=== PATIENT | female | born 1990 | race Caucasian/White ===

== ENCOUNTER 2021-03-11 08:12 | Outpatient (REF) | payer BC, SELFPAY ==
--- NOTE | ~2021-03-11 | XR_ITS ---
EXAMINATION: XR LUMBOSACRAL SPINE CLINICAL INFORMATION: Low back pain COMPARISON: None TECHNIQUE: Three views of the lumbosacral spine. FINDINGS: There is normal lumbar lordosis. The vertebral heights, alignment and disc heights are normal. No acute fracture, dislocation or lytic process seen. The SI joints are symmetrical with partial lumbarization of S1 vertebra noted. The soft tissues are unremarkable. XR/XR lumbar spine 2-3V IMPRESSION: Unremarkable lumbar spine exam.
[2021-03-11 08:41] LABS: MANUAL DIFF FLAG NO
[2021-03-11 08:47] LABS: Basophils Percent Auto 0.6 % (0-2); Eosinophils Absolute Auto 0.2 X10*3/uL (0.0-0.4); Eosinophils Percent Auto 2.1 % (0-4); Hematocrit 40.3 % (37-47); Hemoglobin 13.2 g/dl (12.0-16.0); Imm Gran Abs Auto 0.02 X10*3/uL (0.00-0.03); Imm Gran Pct Auto 0.3 % (0.0-0.4); Lymphocytes Absolute Auto 2.2 X10*3/uL (1.2-4.9); Lymphocytes Percent Auto 30.8 % (20-40); Mean Corpuscular HGB Conc 32.8 g/dl (31.0-35.0); Mean Corpuscular Hemoglobin 26.7 pg (27.0-33.0); Mean Corpuscular Volume 81.4 fL (80-98); Mean Platelet Volume 10.2 fL (9.4-12.3); Monocytes Absolute Auto 0.5 X10*3/uL (0.1-1.2); Monocytes Percent Auto 7.3 % (2-11); Neutrophils Absolute Auto 4.3 X10*3/uL (2.0-8.3); Neutrophils Percent Auto 58.9 % (45-73); Platelet Count 361 X10*3/uL (160-400); Red Blood Count 4.95 X10*6/uL (4.20-5.50); Red Cell Distribution Width 13.2 % (11.0-16.0); White Blood Count 7.3 X10*3/uL (4.8-10.8)
[2021-03-11 09:19] LABS: Alanine Aminotransferase 23 U/L (0-31); Albumin Level 4.1 g/dL (3.5-5.0); Alkaline Phosphatase 60 U/L (39-117); Anion Gap 12 (12-20); Aspartate Amino Transferase 19 U/L (5-31); Bilirubin Total 0.4 mg/dL (0.0-1.0); Blood Urea Nitrogen 10 mg/dL (9-16); Calcium 9.1 mg/dL (8.4-10.2); Carbon Dioxide 25 mmol/L (22-29); Chloride 106 mmol/L (96-108); Cholesterol 208 mg/dL; Estimated Glomerular Filt Rate > 60; Glucose Random 109 mg/dL (60-115); HDL Cholesterol 43 mg/dL; LDL Cholesterol Calculated 135 mg/dl; Potassium 4.6 mmol/L (3.3-5.1); Sodium 138 mmol/L (135-145); Total Protein 6.9 g/dL (6.5-8.0); Triglycerides 154 mg/dL
== END 2021-03-11 08:13 | disposition home or self-care (01) ==
LOC: HO.LAB 08:12
PROVIDERS: PCP Internal Medicine; Visit Provider Physician Assistant
DX: M54.5 Low back pain (principal)
CPT/HCPCS: 36415; 72100; 80053; 80061; 85025

== ENCOUNTER 2022-06-12 13:32 | Outpatient (REF) | payer BC, SELFPAY ==
--- NOTE | ~2022-06-12 | XR_ITS ---
EXAMINATION: XR ANKLE, LEFT CLINICAL INFORMATION: Pain COMPARISON: None TECHNIQUE: AP, lateral, and mortise views of the left ankle. FINDINGS: No fracture or dislocation. The ankle mortise is congruent. No ankle joint effusion. Mild soft tissue prominence throughout the ankle. Degenerative change noted at the midfoot with spurring at the navicular and cuneiforms. XR/XR ankle LT min 3V IMPRESSION: Mild soft tissue prominence. No osseous abnormality.
[2022-06-12 17:37] LABS: MANUAL DIFF FLAG NO
[2022-06-12 17:49] LABS: Alanine Aminotransferase 20 U/L (0-31); Albumin Level 4.1 g/dL (3.5-5.0); Alkaline Phosphatase 55 U/L (39-117); Anion Gap 15 (12-20); Aspartate Amino Transferase 20 U/L (5-31); Basophils Absolute Auto 0.1 X10*3/uL (0.0-0.2); Bilirubin Total 0.6 mg/dL (0.0-1.0); Blood Urea Nitrogen 10 mg/dL (9-16); Calcium 9.1 mg/dL (8.4-10.2); Carbon Dioxide 25 mmol/L (22-29); Chloride 104 mmol/L (96-108); Cholesterol 204 mg/dL; Eosinophils Absolute Auto 0.1 X10*3/uL (0.0-0.4); Eosinophils Percent Auto 1.6 % (0-4); Estimated Glomerular Filt Rate > 60; Glucose Random 94 mg/dL (60-115); HDL Cholesterol 44 mg/dL; Hematocrit 39.9 % (37.0-47.0); Hemoglobin 13.1 g/dl (12.0-16.0); Imm Gran Abs Auto 0.02 X10*3/uL (0.00-0.03); Imm Gran Pct Auto 0.3 % (0.0-0.4); LDL Cholesterol Calculated 127 mg/dl; Lymphocytes Absolute Auto 1.9 X10*3/uL (1.2-4.9); Lymphocytes Percent Auto 27.2 % (20-40); Mean Corpuscular HGB Conc 32.8 g/dl (31.0-35.0); Mean Corpuscular Hemoglobin 26.8 pg (27.0-33.0); Mean Corpuscular Volume 81.6 fL (80.0-98.0); Monocytes Absolute Auto 0.4 X10*3/uL (0.1-1.2); Monocytes Percent Auto 5.2 % (2-11); Neutrophils Absolute Auto 4.6 x10*3/uL (2.0-8.3); Neutrophils Percent Auto 64.7 % (45-73); Platelet Count 372 X10*3/uL (160-400); Potassium 4.6 mmol/L (3.3-5.1); Red Blood Count 4.89 X10*6/uL (4.20-5.50); Red Cell Distribution Width 13.5 % (11.0-16.0); Sodium 139 mmol/L (135-145); Total Protein 6.9 g/dL (6.5-8.0); Triglycerides 168 mg/dL; White Blood Count 7.1 X10*3/uL (4.8-10.8)
[2022-06-12 18:09] LABS: Free T4 (Free Thyroxine) 0.99 ng/dL (0.71-1.85); Thyroid Stimulating Hormone 0.68 uIU/mL (0.32-4.0); Vitamin D 25-OH Total 22.5 ng/mL (>30)
== END 2022-06-12 13:33 | disposition home or self-care (01) ==
LOC: HO.MANLDS 13:32
PROVIDERS: PCP Internal Medicine; Visit Provider Physician Assistant
DX: Z00.00 Encounter for general adult medical examination without abnormal findings (principal); M25.572 Pain in left ankle and joints of left foot
CPT/HCPCS: 36415; 73610; 80053; 80061; 82306; 84439; 84443; 85025

== ENCOUNTER 2023-04-24 14:26 | Outpatient (REF) | payer OTHER, SELFPAY ==
[2023-04-27 04:15] LABS: Lyme Blot >10.00 index
[2023-05-03 13:03] LABS: Lyme Abs Screen POSITIVE
[2023-05-03 13:04] LABS: 18 KD (IgG) Band REACTIVE; 23 KD (IgG) Band REACTIVE; 23 KD (IgM) Band REACTIVE; 28 KD (IgG) Band NON-REACTIVE; 30 KD (IgG) Band REACTIVE; 39 KD (IgM) Band NON-REACTIVE; 39KD (IgG) Band REACTIVE; 41 KD (IgM) Band REACTIVE; 41KD (IgG) Band REACTIVE; 45 KD (IgG) Band REACTIVE; 58 KD (IgG) Band REACTIVE; 66 KD (IgG) Band REACTIVE; 93 KD (IgG) Band NON-REACTIVE; Lyme IgG Blot Interp POSITIVE (NEGATIVE); Lyme IgM Blot Interp POSITIVE (NEGATIVE)
== END 2023-04-24 14:27 | disposition home or self-care (01) ==
LOC: HO.MANLDS 14:26
PROVIDERS: Visit Provider Physician Assistant
DX: L08.9 Local infection of the skin and subcutaneous tissue, unspecified (principal)
CPT/HCPCS: 86617; 86618; 86666

== ENCOUNTER 2023-06-10 12:01 | Outpatient (REF) | payer OTHER, SELFPAY ==
--- NOTE | ~2023-06-10 | XR_ITS ---
EXAMINATION: XR ANKLE, LEFT CLINICAL INFORMATION: Pain COMPARISON: Previous x-ray May 2022 TECHNIQUE: AP, lateral, and mortise views of the left ankle. FINDINGS: Bone alignment is normal. No fracture or dislocation. The ankle mortise is normal. There degenerative changes of the midfoot. Soft tissues are unremarkable. XR/XR ankle LT min 3V IMPRESSION: Normal ankle. Degenerative changes of the midfoot.
== END 2023-06-10 12:02 | disposition home or self-care (01) ==
LOC: HO.XRAY 12:01
PROVIDERS: PCP Internal Medicine; Visit Provider Physician Assistant
DX: M25.572 Pain in left ankle and joints of left foot (principal)
CPT/HCPCS: 73610

== ENCOUNTER 2023-07-10 15:40 | Outpatient (REF) | payer OTHER, SELFPAY | END 2023-07-10 15:41 | disposition home or self-care (01) | LOC: HO.MAMMO 15:40 | PROVIDERS: PCP Physician Assistant; Visit Provider Physician Assistant | DX: Z12.31 Encounter for screening mammogram for malignant neoplasm of breast (principal) | CPT/HCPCS: 77063; 77067 ==

== ENCOUNTER → 2023-07-10 15:45 | Outpatient (BNV) | payer OTHER, SELFPAY | PROVIDERS: PCP Physician Assistant; Visit Provider Radiology Diagnostic Radiology | DX: Z12.31 Encounter for screening mammogram for malignant neoplasm of breast (principal) | CPT/HCPCS: 77063; 77067 ==

== ENCOUNTER 2024-07-20 13:40 | Outpatient (REF) | payer OTHER, SELFPAY ==
--- NOTE | ~2024-07-20 | XR_ITS ---
EXAMINATION: XR HAND, RIGHT CLINICAL INFORMATION: Pain in right thumb and hand injury. COMPARISON: None available. TECHNIQUE: PA, lateral, and oblique views of the right hand. FINDINGS: Radiopaque marker placed by technologist to indicate the area of concern as indicated by the patient along the proximal phalange of the first digit. Mild degenerative changes in the first carpometacarpal joint with joint space narrowing and hypertrophic change. Ulnar minus variance. Mild degenerative changes in the first metatarsophalangeal joint. Mild degenerative changes in the DIP joints. XR/XR hand RT min 3V IMPRESSION: 1. Mild degenerative changes first carpometacarpal joint. 2. Mild degenerative changes first metatarsophalangeal joint. 3. Mild degenerative changes in the DIP joints. Electronically signed by: Cindy Marlow MD 07/29/2024 10:52 AM EDT
== END 2024-07-20 13:41 | disposition home or self-care (01) ==
LOC: HO.XRAY 13:40
PROVIDERS: PCP Internal Medicine; Visit Provider Physician Assistant
DX: M79.644 Pain in right finger(s) (principal)
CPT/HCPCS: 73130

== ENCOUNTER 2025-07-31 09:10 | Outpatient (REF) | payer OTHER, SELFPAY ==
--- OUTSIDE RECORDS SUMMARY | 2025-07-31 09:14 | XMS_ITS | Clinical Summary ---
Author Organization [facility] Address [address] [place] [address] Care Team Providers Care Bobbin Trucker Name Role Phone Unavailable Primary Care Provider Unavailabl e Social History Tobacco Use Types Packs/Day Years Used Date Smoking Tobacco: Never Assessed Comments Unknown Sex and Gender Information Value Date Recorded Sex Assigned at Not on file Legal Sex Female 2:21 AM EST Gender Identity Not on file Sexual Orientation Not on file Plan of Treatment Not on file
--- OUTSIDE RECORDS SUMMARY | 2025-07-31 09:14 | XMS_ITS | Clinical Summary ---
Author Organization [facility] Address [address] [place] [phone] Phone Care Team Providers Care Director Product Management Name Role Phone Fantasma Paredes Primary Care Provider [phone] Allergies No known active allergies Medications cetirizine HCl (ZYRTEC ORAL) Active aspirin-acetami nophen-caffeine (EXCEDRIN MIGRAINE) 250-250-65 mg per tablet Excedrin Migraine Take two tables one time prn Active fluticasone propionate (FLONASE) 50 mcg/actuation nasal spray Flonase Active ALPRAZolam (XANAX) 0.5 MG tablet alprazolam 0.5 mg tablet TAKE 1 TABLET BY MOUTH THREE TIMES DAILY NEEDED Active peg-electrolyte soln (NULYTELY) 420 gram SolR peg-electrolyte solution 420 gram oral solution MIX AND DRINK DIRECTED Active albuterol 90 mcg/actuation inhaler Inhale 2 puffs into the lungs every 4 (four) hours as needed for wheezing. 6.7 g 2 Active Active Problems Problem Noted Date Diagnosed Date Seasonal allergies 02/07/2018 Social History Tobacco Use Types Packs/Day Years Used Date Smoking Tobacco: Never Smokeless Tobacco: Never Tobacco Cessation:Counseling Given: Not Answered Alcohol Use Standard Drinks/Week Comments Yes 0 (1 standard drink = 0.6 oz pur e alcohol) occasionally Education Answer Date Recorded Are you interested in more education? Not on susana e 02/15/2023 Are you concerned about learning? Not on file 02/15/2023 No 02/15/2023 No 02/15/2023 Digital Access Answer Date Recorded No 03/16/2023 No 03/16/2023 No 03/16/2023 Reliable internet access at home? Not on file 03/16/2023 Device with a working camera? Not on file Comments Unknown Sex and Gender Information Value Date Recorded Sex Assigned at Not on file Legal Sex Female 10:26 PM EDT Gender Identity Not on file Sexual Orientation Not on file Last Filed Vital Signs Vital Sign Reading Time Taken Comments Blood Pressure 153/101 10/03/2022 11:37 AM EST Pulse 86 10/03/2022 11:37 AM EST Temperature 36.9 C (98.4 F) 10/03/2022 11:37 AM EST Respiratory Rate 18 10/03/2022 11:37 AM EST Oxygen Saturation 97% 10/03/2022 11:37 AM EST Inhaled Oxygen Concentration - - Weight 158.8 kg (350 lb) 10/03/2022 11:37 AM EST per pt Height 177.8 cm (5' 10 ) 02/07/2018 2:22 PM EDT Body Mass Index 50.22 02/07/2018 2:22 PM EDT Plan of Treatment Health Maintenance Due Date Last Done Comments Adult Td,Tdap Booster 1989 DEPRESSION SCREENING 2001 HEPATITIS C SCREENING 2007 HIV ONE-TIME SCREENING (18-65 YEARS) 2007 PAP SMEAR 2010 SCREENING FOR DIABETES 02/12/2024 02/07/2018 INFLUENZA VACCINE (#1) 2025 2, 08/07/2021, 07/14/2019, Additional history exists COVID-19 VACCINE (2024- season) 2025 07/15/2022, 08/30/2021, 11/29/2020, Additional history exists SMOKING STATUS SCREENING (Once After 26 Yrs) Completed 10/03/2022 HEPATITIS A VACCINES Aged Out No long er eligible based on patient's age to complete this topic HIB VACCINES Aged Out No longer eligi ble based on patient's age to complete this topic MENINGOCOCCAL VACCINES (ACWY) Aged Out No longer eligible based on patient's age to complete this topic MENINGOCOCCAL VACCINES (B) Aged Out N o longer eligible based on patient's age to complete this topic PNEUMOCOCCAL VACCINES (0-49 years) Aged Out No longer eligible based on patient's age to complete this topic Medical Devices Not on file [place] [address] [place] [address] [place] [address] [place] [address] [place] [address] [place] [address] [place] [address] [place] [address] Care Teams Director Product Management Relationship Specialty Start Date End Date Fantasma Paredes DO [email or web address] PCP - General Internal Medicine 02/07/18 Additional Source Comments The information contained in this document represents components of the legal health record. It is not the complete legal health record.[facility]
--- OUTSIDE RECORDS SUMMARY | 2025-07-31 09:14 | XMS_ITS | Clinical Summary ---
Author Organization [facility] Address [address] [place] [id number] Care Team Providers Care Qa Reviewer Name Role Phone Unavailable Primary Care Provider Unavailabl e Social History Tobacco Use Types Packs/Day Years Used Date Smoking Tobacco: Never Assessed Comments Unknown Sex and Gender Information Value Date Recorded Sex Assigned at Not on file Legal Sex Female 7:43 AM EST Gender Identity Not on file Sexual Orientation Not on file Plan of Treatment Health Maintenance Due Date Last Done Comments HIV screening 2002 Hepatitis C screening 2007 Tetanus adult (Td q 10,TDAP once) 2009 Influenza vaccine 05/21/2025 Covid-19 vaccine series (2023- season) 2025 RSV Immunization (1 - 1-dose 75+ series) 02/12/2064 Meningococcal B Vaccine Aged Out No l onger eligible based on patient's age to complete this topic Meningococcal Vaccine Aged Out No tina shanique eligible based on patient's age to complete this topic Pneumococcal Vaccine (2 - 49 years) Aged Out No longer eligible based on patient's age to complete this topic
--- OUTSIDE RECORDS SUMMARY | 2025-07-31 09:14 | XMS_ITS | Encounter Summary ---
Author Organization [facility] Address [address] [place] [phone] Phone Care Team Providers Care Lead Electrical Controls Engineer Name Role Phone Fantasma Paredes DO Primary Care Provider [phone] Encounter Details Date Type Department Care Team (Latest Contact Info) Description 08/04/2024 Transcribe Orders Virtual Department [address] [place] [phone] Kierra Smith PA [address] [facility] [place] [place] [address] Pain in right finger(s) (Primary Dx) Social History Tobacco Use Types Packs/Day Years Used Date Smoking Tobacco: Never Smokeless Tobacco: Never Alcohol Use Standard Drinks/Week Comments Yes 0 [...] on file Sexual Orientation Not on file documented as of this encounter Plan of Treatment Not on file documented as of this encounter Visit Diagnoses Diagnosis Pain in right finger(s)- Primary documented in this encounter Care Teams Lead Electrical Controls Engineer Relationship Specialty Start Date End Date Fantasma Paredes DO [email or web address] PCP - General Internal Medicine 02/07/18 documented as of this encounter Additional Source Comments The information contained in this document represents components of the legal health record. It is not the complete legal health record.[facility]
[2025-07-31 09:48] LABS: MANUAL DIFF FLAG NO
[2025-07-31 10:18] LABS: Hematocrit 39.9 % (37.0-47.0); Hemoglobin 13.0 g/dl (12.0-16.0); Imm Gran Abs Auto 0.03 X10*3/uL (0.00-0.03); Imm Gran Pct Auto 0.4 % (0.0-0.4); Lymphocytes Absolute Auto 1.3 X10*3/uL (1.2-4.9); Mean Corpuscular HGB Conc 32.6 g/dl (31.0-35.0); Mean Corpuscular Hemoglobin 27.1 pg (27.0-33.0); Mean Corpuscular Volume 83.1 fL (80.0-98.0); NRBC Abs Auto 0.000 X10*3/uL (0.0-0.012); NRBC Pct Auto 0.0 /100WBC (0.0-0.2); Platelet Count 330 X10*3/uL (160-400); Red Blood Count 4.80 X10*6/uL (4.20-5.50); White Blood Count 7.4 X10*3/uL (4.8-10.8)
[2025-07-31 12:03] LABS: Alanine Aminotransferase 27 U/L (0-31); Albumin Level 4.2 g/dL (3.5-5.0); Alkaline Phosphatase 57 U/L (39-117); Anion Gap 11 (12-20); Aspartate Amino Transferase 24 U/L (5-31); Blood Urea Nitrogen 10 mg/dL (9-16); Calcium 8.7 mg/dL (8.4-10.2); Carbon Dioxide 26 mmol/L (22-29); Chloride 104 mmol/L (96-108); Cholesterol 214 mg/dL (<200); Estimated Glomerular Filt Rate > 60; HDL Cholesterol 42 mg/dL (>40); Potassium 4.4 mmol/L (3.3-5.1); Sodium 137 mmol/L (135-145); Total Protein 6.8 g/dL (6.5-8.0); Triglycerides 213 mg/dL (<150)
[2025-07-31 12:04] LABS: Folate 13.3 ng/mL (> or = 4.0); Vitamin B12 264 pg/mL (200-900)
[2025-07-31 12:21] LABS: Free T4 (Free Thyroxine) 0.90 ng/dL (0.71-1.85); Thyroid Stimulating Hormone 0.88 uIU/mL (0.32-4.0)
== END 2025-07-31 09:11 | disposition home or self-care (01) ==
LOC: HO.LAB 09:10
PROVIDERS: PCP Internal Medicine; Visit Provider Physician Assistant
DX: Z00.00 Encounter for general adult medical examination without abnormal findings (principal); Z13.6 Encounter for screening for cardiovascular disorders; Z13.1 Encounter for screening for diabetes mellitus; Z13.29 Encounter for screening for other suspected endocrine disorder
CPT/HCPCS: 36415; 80053; 80061; 82306; 82607; 82746; 83036; 84439; 84443; 85025

== ENCOUNTER 2025-09-07 16:11 | Outpatient (REF) | payer OTHER, SELFPAY ==
--- NOTE | ~2025-09-07 | XR_ITS ---
EXAMINATION: XR ANKLE, LEFT CLINICAL INFORMATION: ANKLE PAIN COMPARISON: None available. TECHNIQUE: AP, lateral, and mortise views of the left ankle. FINDINGS: No fracture. Alignment is anatomic. No erosions. Joint spaces are maintained. Soft tissues are normal. XR/XR ankle LT min 3V IMPRESSION: Unremarkable left ankle. Electronically signed by: Anil Corea MD 09/07/2025 04:45 PM EST
--- OUTSIDE RECORDS SUMMARY | 2025-09-08 13:23 | XMS_ITS | Data Portability ---
Author Organization [facility], Telehealth Patient Home Address [address] [place] [address] Assessment Encounter Date Assessment Date Assessment LastModified by Organization Details LastModified Time 07/21/2024 07/21/2024 need XR orders [email or web address] Not available 07/21/2024 15:53:41 Plan of Treatment Reminders Order Date Submit Date Provider Last Modified By Organization Details Last Modified Time Details Appointments ANNUAL EXAM 2025 03:30P AGNES AYALA Not available Not available Not available Lab CMP, serum or plasma 2024 025 [facility], [address] [place] [address], [id number], 07/27/2025 16:19:44 CBC w/ auto diff 2024 025 [facility], [address] [place] [address], [id number], 07/27/2025 16:19:44 lipid panel, blood 2024 025 [facility], [address] [place] [address], [address], 07/27/2025 16:19:44 vitamin D, 25-hydrox y, total, serum 2024 025 [facility], [address] [place] [address], [address], 07/27/2025 16:19:44 TSH + free T4, serum 2024 025 [facility], [address] [place] [address], [address], 07/27/2025 16:19:44 hemoglobi n A1c, QN, blood 2024 025 [facility], [address] [place] [address], [address], 07/27/2025 16:19:44 vitamin B12 + folate, serum or blood 2024 025 [facility], [address] [place] [address], [address], 08/03/2025 08:32:52 CMP, serum or plasma 2023 024 [facility], [address] [place] [address], [address], 07/21/2024 16:09:26 CBC w/ auto diff 2023 024 [facility], [address] [place] [address], [address], 07/21/2024 16:09:26 vitamin D, 25-hydrox y, total, serum 2023 024 [facility], [address] [place] [address], 37[address], 07/21/2024 16:09:26 lipid panel, blood 2023 024 [facility], [address] [place] [address], 58[address], 07/21/2024 16:09:26 hemoglobi n A1c, QN, blood 2023 024 [facility], [address] [place] [address], [address], 07/21/2024 16:09:26 TSH + free T4, serum 2023 024 [facility], [address] [place] [address], 9[address], 07/21/2024 16:09:26 CMP, serum or plasma 2021 022 [facility], [address] [place] [address], 78[address], 06/13/2022 11:55:41 CBC w/ auto diff 2021 [facility], [address] [place] [address], 07[address], 06/06/2022 12:25:22 lipid panel, blood 2021 [facility], [address] [place] [address], 287[address], 06/13/2022 11:55:41 vitamin D, 25-hydrox y, total, serum 2021 022 [facility], [address] [place] [address], [address], 06/06/2022 12:25:22 TSH + free T4, serum 2021 022 [facility], [address] [place] [address], [address], 06/13/2022 11:55:42 lipid panel, blood 2020 021 [facility], [address] [place] [address], [place], [address], 03/13/2021 11:47:02 CMP, serum or plasma [email or web address] [place] [address] Internal Medicine, [address] [place] [address], [facility] [place], [address], 02/28/2021 08:27:56 CBC w/ auto diff 2020 021 [facility], [address] [facility], [address], [place], [address], 03/13/2021 11:47:02 Referral orthopedi c surgeon referral 2024 025 [facility]opedic Surgeon, [address], [place], [address], 09/03/2025 08:10:15 gynecolog ist referral 2024 025 [email or web address] 10 [facility], [address] [place] [address], [address], 07/30/2025 08:30:32 ophthalmo logist referral 2021 022 [facility]rol [facility], [address] [place], [address], 06/11/2022 09:00:28 genetic counselor referral 2021 022 [email or web address] Miguel Scott MD, [address], [place], [address], 07/16/2022 15:17:19 gastroent erologist referral 2021 022 [email or web address] 10 Agustin Ruelas MD, [address] [facility] [address], [place], [address], 06/08/2022 16:03:47 Procedures None recorded. Surgeries None recorded. Imaging XR, ankle, 3 or more view 2022 023 [facility], [address], [place], [address], 06/11/2023 15:20:48 MAMMO, screening , digital, bilateral - fam hx with mom has breast cancer, needs 6 mos for previous imaging 2022 023 [email or web address] 10 [facility], [facility], [place], [address], 06/25/2023 12:05:06 XR, ankle, 3 or more view 2021 022 [facility] Central Scheduling, [address] [place] [address], [address], 06/15/2022 01:16:28 MAMMO, screening , digital, bilateral - mother and multiple aunts diagnosed with breast cancer, mother has the CHEK2 mutation 2021 022 [email or web address] [facility], [address], [place], [address], 07/06/2022 09:33:38 XR, lumbar spine, 2 view 2020 021 [facility] Central Scheduling, [address] [place] [address], [address], 02/28/2021 08:51:08 Medication Orders bupropion HCl XL 150 mg 24 hr tablet, extended release 2023 024 [id number], [address] [place], [address], 08/12/2024 11:56:08 Patient TargetsNo targets recorded. Patient InstructionsNo instructions recorded. Reason for Referral Product Promoter Sales Person Referral for Family history of cancer of colon significant family hx of colon cancer, with mother, uncle and aunt Referring Physician: Kierra Smith, Internal Medicine, Encounter Date: 06/06/2022 Genetic Counselor Referral f or Family history of breast cancer significant family hx of breast and colon cancer, mother has the CHEK2 mutation Referring Physician: Kierra Smith, Internal Medicine, Encounter Date: 06/06/2022 Oil Pumper Referral for Chronic uveitis needs referral, already has appt Referring Physician: Kierra Smith, Internal Medicine, Encounter Date: 06/06/2022 Orthopedic Surgeon Referral for Acute ankle pain left ankle and left knee pain Referring Physician: Kierra Smith, Internal Medicine, Encounter Date: 07/27/2025 Boiler Blower Referral for Sc reening for malignant neoplasm of cervix needs new DATA WAREHOUSE SPECIALIST Referring Physician: Kierra Smith, Internal Medicine, Encounter Date: 07/27/2025 Results Created Date Observation Date Name Description Value Unit Range Abnormal Flag Note LastModifiedBy Organization Detail LastModifiedTime 03/22/20 21 03/11/2021 XR, lumba r spine , 2 view No observ ation record ed. [facility] Central Scheduling [address] [place], [address], 03/24/2021 16:18:50 06/15/20 22 06/12/2022 XR, ankle , 3 or more view No observ ation record ed. [facility] (Medical Records) [address] [place], [address], 06/18/2022 11:19:56 07/11/20 22 07/11/2022 MAMMO , scree trena, digit al, bilat eral No observ ation record ed. [facility] [place] [address] [facility] [place], [address], 07/13/2022 08:47:06 07/20/20 22 07/20/2022 MAMMO , scree trena, digit al, bilat eral No observ ation record ed. [facility] [place] [address] [place], [address], 07/20/2022 16:49:06 06/11/20 23 06/10/2023 XR, ankle , 3 or more view No observ ation record ed. [facility] (Medical Records) [address] [place], [address], 06/11/2023 15:27:58 07/30/20 23 07/10/2023 MAMMO , scree trena, digit al, bilat eral No observ ation record ed. [facility] [address] [place], [address], 07/31/2023 08:39:50 07/29/20 24 07/20/2024 XR, hand, 3 or more view No observ ation [facility]. [facility] [address] [place], [address], 07/31/2024 14:58:25 09/07/20 25 09/07/2025 XR, ankle , 3 or more view No observ ation record ed. [email or web address] [facility] (Medical Records) [address] [place], [address], 09/08/2025 08:30:04 Result Notes None recorded. Problems Name Problem SNOMED Code Status Onset Date Resolution Date Notes Provider Name and Address Organization Details Recorded Time Lyme disease 04210638 Active 2017 Not Available [facility] 3 16:40:52 Fracture of bone 652472432 Active 2017 Toes - uncertain of specifics Not Available [facility] 3 16:40:52 Allergic rhinitis 05762839 Active 2017 Not Available [facility] 3 16:40:52 Anxiety 43785755 Active 2017 Not Available [facility] 3 16:40:52 Anemia 134888983 Active 2017 diet related- vegetaria n Not Available [facility] 3 16:40:52 Migraine 58986010 Active 2017 Not Available [facility] 3 16:40:52 Cataract 012056738 Active 2017 2/2 use for tx of uveitis s/p removal - age 14 Not Available [facility] 3 16:40:52 Uveitis 640536759 Active 2017 with JRA Not Available [facility] 3 16:40:52 Pain of left ankle joint 44005479075 930320 Active 2021 Not Available [facility] 3 16:40:52 Chronic uveitis 895571236 Active 2021 Not Available [facility] 3 16:40:52 Localize d swelling , mass and lump, lower limb Active 2021 Not Available [facility] 3 16:40:52 COVID-19 805190186 Active 2022 Not Available [facility] 3 16:40:52 Infected insect bite 601164533 Active 2022 Not Available [facility] 3 16:40:52 Pain in right thumb 79213109218 20971 Active 2023 AGNES LANDAVERDE [address] [place], [address], [facility] 4 10:24:48 Anxiety disorder 994321124 Active 2023 AGNES LANDAVERDE [address] [place], [address], [facility] 4 16:06:46 Acute ankle pain 72025165486 105 Active 2024 AGNES [address]DAVERDE [address] [place] [address], [address], [facility] 5 16:00:02 Problem Notes None recorded. Procedures Surgical History Date Name Laterality Status Provider Name and Address Organization Details Recorded Time 10/21/19 13 Date of Last Pap Smear completed January PHILIPPE Rodriguez [address] [place], [address], [facility] 03/03/2018 16:18:48 Cataract Surgery completed Georgina Hoff [facility] 02/17/2018 08:39:49 Imaging Results None recorded. Procedure Notes None recorded. Medical Equipment None Reported. Allergies No known drug allergies Medications Name Sig Start Date Stop Date Status Note LastModified by Organization Details LastModified Time azithromyci n 250 mg tablet TAKE 2 TABLETS BY MOUTH TODAY, THEN TAKE 1 TABLET DAILY FOR 4 DAYS 06/10 completed Not Available Not Available Not Available fluconazole 150 mg tablet Take 1 tablet every day by oral route for 3 days. 04/06 completed Not Available Not Available Not Available meloxicam 15 mg tablet TAKE 1 TABLET BY MOUTH WITH A MEAL FOR 30 DAYS active Not Available Not Available No t Available Zyrtec 10 mg tablet Take 1 tablet every day by oral route. active OTC Not Available Not Available No t Available peg-electro lyte solution 420 gram oral solution MIX AND DRINK DIRECTED 06/10 completed Not Available Not Available Not Available alprazolam 0.5 mg tablet TAKE 1 TABLET BY MOUTH THREE TIMES A DAY NEEDED active Not Available Not Available No t Available cephalexin 500 mg capsule TAKE 1 CAPSULE BY MOUTH EVERY 6 HOURS FOR 7 DAYS 06/10 completed Not Available Not Available Not Available methylpredn isolone 4 mg tablets in a dose pack TAKE 6 TABLETS ON DAY 1 DIRECTED ON PACKAGE AND DECREASE BY 1 TAB EACH DAY FOR A TOTAL OF 6 DAYS 06/10 completed Not Available Not Available Not Available albuterol sulfate HFA 90 mcg/actuati on aerosol inhaler INHALE 2 PUFFS BY MOUTH EVERY 4 HOURS NEEDED FOR WHEEZING 06/10 completed Not Available Not Available Not Available doxycycline hyclate 100 mg tablet TAKE 1 TABLET BY MOUTH TWICE A DAY 07/21 completed Not Available Not Available Not Available bupropion HCl XL 150 mg 24 hr tablet, extended release TAKE 1 TABLET BY MOUTH EVERY DAY active Not Available Not Available No t Available melatonin 06/06 completed Not Available Not Available Not Available Kava Kava 1 capsule once a day 04/06 completed Not Available Not Available Not Available Flonase active Not Available Not Avail able Not Available Excedrin Migraine Take two tables one time prn 06/10 completed Not Available Not Available Not Available Zyrtec 10 mg capsule Take 1 capsule every day by oral route. 06/06 completed Not Available Not Available Not Available [facility] with Large Mask USE WITH INHALER DIRECTED 06/10 completed Not Available Not Available Not Available Fluarix Quad 0420-3587 (PF) 60 mcg (15 mcg x 4)/0.5 mL IM syringe 02/17 completed Not Available Not Available Not Available Flucelvax Quad (PF) 60 mcg (15 mcg x 4)/0.5 mL IM syringe 02/21 completed Not Available Not Available Not Available Flucelvax Quad (PF) 60 mcg (15 mcg x 4)/0.5 mL IM syringe 02/21 completed Not Available Not Available Not Available Vitals Date Recorded Body height Body mass index (BMI) Body weight Oxygen saturation Oxygen saturation in Arterial blood by Pulse oximetry Heart rate Systolic And Diastolic Provider Name and Address Organization Details Last Updated DateTime 1 176.53 cm 54.4 kg/m2 645469. 55 g 98 % 98 % 103 /min 134/70 mm[Hg] Wilda Mendoza [facility] Internal [facility] 1 15:55:40 Date Recorded Body height Body mass index (BMI) Body weight Oxygen saturation Oxygen saturation in Arterial blood by Pulse oximetry Heart rate Systolic And Diastolic Provider Name and Address Organization Details Last Updated DateTime 2 176.53 cm 55.1 kg/m2 980490. 99 g 99 % 99 % 91 /min 140/72 mm[Hg] Vianca Yoon [facility] Internal Medicine 2 11:47:33 Date Recorded Body height Body mass index (BMI) Body weight Heart rate Oxygen saturation Oxygen saturation in Arterial blood by Pulse oximetry Systolic And Diastolic Provider Name and Address Organization Details Last Updated DateTime 3 176.53 cm 56.3 kg/m2 181880. 53 g 85 /min 100 % 100 % 132/86 mm[Hg] AGNES LANDAVERDE [address] [place], [address] [place] [address] Internal Medicine 3 10:43:16 Date Recorded Body height Body mass index (BMI) Body weight Heart rate Oxygen saturation Oxygen saturation in Arterial blood by Pulse oximetry Systolic And Diastolic Provider Name and Address Organization Details Last Updated DateTime 4 176.53 cm 59.2 kg/m2 601308. 38 g 91 /min 96 % 96 % 160/102 mm[Hg] Bailey Richard [facility] Internal Medicine 4 15:29:45 Date Recorded Body weight Body mass index (BMI) Body height Heart rate Oxygen saturation Oxygen saturation in Arterial blood by Pulse oximetry Systolic And Diastolic Provider Name and Address Organization Details Last Updated DateTime 5 987270. 87 g 60.5 kg/m2 175.26 cm 90 /min 98 % 98 % 160/90 mm[Hg] Rika Álvaro [facility] Internal Medicine 15:27:28 Social History Question Answer Notes LastModified by Organizat ion Details LastModified Time Tobacco Smoking Status Never Smoker Georgina Hoff rosie [facility] Internal Medicine 02/17/2018 16:05:57 What Was The Date Of Your Most Recent Tobacco Screening? 07/27/2025 [email or web address] Information not available 07/27/2025 How Much Tobacco Do You Smoke? No Information not available 02/21/2021 How Many Years Have You Smoked Tobacco? 0 Information not available 02/21/2021 Sex: Unknown Functional Status Question Answer Note LastModified by Organizat ion Details LastModified Time Do you or have you ever used smokeless tobacco? Never used smokeless tobacco Information not available 02/21/2021 Do you or have you ever used e-cigarettes or vape? Never used electronic cigarettes Information not available 02/21/2021 Mental Status None recorded. Family History Relationship Description Onset Age of this Age Resolved Age Notes LastModified by Organization Details LastModified Time Maternal Grandfather Parkinson's disease [email or web address] Not available 03/03 16:14:46 Maternal Grandmother Myocardial infarction 90 90 [email or web address] Not available 02/18 16:15:43 Maternal Grandmother Malignant melanoma of skin 90 [email or web address] Not available 03/03 16:16:38 Paternal Grandmother Myocardial infarction 86 86 [email or web address] Not available 02/18 16:15:43 Mother Parkinson's disease [email or web address] Not available 2022 11:03:41 Mother Malignant neoplasm of breast [email or web address] Not available 2022 11:04:49 Father Spinal stenosis of lumbosacral region [email or web address] Not available 2024 16:11:49 Medical History No medical history recorded. Gynecological History Statement/Question Response Abnormal Pap N Flow Moderate Date of LMP 04/25/2018 STIs/STDs N HPV Vaccine N Duration of Flow (days) 5 Age at Menarche 11 Current Control Method None Age at First Child Frequency of Cycle (Q days) 27 Sexually Active? Y Menses Monthly Y Date of Last Pap Smear 10/21/2012 Sexual Problems? N Desired Control Method None Obstetrics History GPAL:G 0 P 0 0 0 0 Immunizations Vaccine Type Date Status Note Provider Azam malik and Address Organization Details Recorded Time SARS-COV-2 (COVID-19) vaccine, UNSPECIFIED 08/16/2024 completed Bailey velez [facility] 08/18/2024 09:01:44 influenza, unspecified formulation 08/16/2024 completed Bailey velez [facility] 08/18/2024 09:01:52 SARS-COV-2 (COVID-19) vaccine, UNSPECIFIED 07/30/2025 completed Bailey velez [facility] 08/03/2025 10:14:41 influenza, unspecified formulation 07/30/2025 completed Bailey velez [facility] 08/03/2025 10:14:50 COVID-19, mRNA, LNP-S, PF, 100 mcg/0.5mL dose or 50 mcg/0.25mL dose 11/04/2020 completed Wilda velez [facility] 02/21/2021 15:56:21 COVID-19, mRNA, LNP-S, PF, 100 mcg/0.5mL dose or 50 mcg/0.25mL dose 11/29/2020 completed Wilda velez [facility] 02/21/2021 15:56:32 Past Encounters Encounter ID Performer Location Encounter Start Date Encounter Closed Date Diagnosis/Indication Diagnosis SNOMED-CT Code Diagnosis ICD10 Code Diagnosis IMO Codes Diagnosis Note [id number] Fantasma Paredes DO [facility] Internal Medicine [address] [facility],[place] [address] 02/17/2018 15:47:09 02/17/2018 16:42:16 Atypical chest pain 807099793 R07.89 determined likely to be muscular or anxiety, cardiac work up was neg per the pt - will need to request the full work up Generalize d anxiety disorder 14897321 F41.1 she takes a kava supplement which is supposed to help with anxiety Tachycardia 0137323 R00. 0 may be anxiety related cut out caffeine cardiovasc ular exercise daily stay well hydrated [id number] Fantasma Paredes [facility] Internal Medicine [address] [facility] [address] 03/03/2018 15:48:58 03/03/2018 16:46:42 Adult health examination 265208589 Z00.01 she will schedule pap with karlo doyle. she doesn't have any plans to have children, therefore would prefer not to see OB Active or passive immunization 098507531 Z23 Microscopic hematuria 19 2436532 R31.21 Obesity 962794635 E66.9 Anxiety 23101167 F41.9 using kava, with good control of sx - has not needed the xanax the chest pains she was feeling have gone as well as the back pain. Virilization 17714812 E2 5.9 [id number] Fantasma Paredes [facility] [address] [facility],[place] [address] 05/12/2018 13:53:06 05/12/2018 15:00:52 Generalized anxiety disorder 52875110 F41.1 she takes a kava supplement which is supposed to help with anxiety has used it twice with good effect overall feels less anxious knowing she has the medication Microscopic hematuria 19 9967561 R31.21 lmp - 04/29 was last day [id number] Fantasma Paredes [facility] [address] [facility],[place] [address] 05/14/2018 14:58:48 05/14/2018 15:50:16 Candidal vulvovaginitis 44534191 B37.3 OTC miconazole 7 day topical and suppositor y Epidermoid cyst of skin 722113042 L72.0 discuss hygiene, try antiperspe rent [id number] Fantasma Paredes [facility] [address] [facility] [address] 11/28/2018 16:05:12 11/28/2018 16:32:45 Anxiety 37600473 F41.9 using xanax pretty sparingly but with good relief Migraine 79933045 G43.90 9 usually takes excedrine if needed Allergic rhinitis 769232 04 J30.9 takes zyrtec and/or flonase depending on sx usually fall and spring sometimes takes flonase in the winter Candidiasis of vagina 72 143471 B37.3 sx keep coming back after treatment has had treatment otc or oral several times with only transient relief will trial diflucan 150 x 3 days, if sx return or don't resolved, need to see senior brand manager or ES for exam Skin lesion 30532463 L98 .9 [id number] Fantasma Paredes DO [facility] Internal Medicine [address] [facility], [place] [address] 04/06/2019 10:49:46 04/06/2019 11:59:21 Adult health examination 513565306 Z00.00 had pap with ES last year Active or passive immunization 196563859 Z23 Anxiety 07883956 F41.9 using xanax pretty sparingly maybe once per month - but with good relief Allergic rhinitis 204653 04 J30.9 takes zyrtec and/or flonase depending on sx usually fall and spring sometimes takes flonase in the winter Migraine 66531825 G43.90 9 usually takes excedrin if needed Anemia 079576277 D64.9 Essential hypertension 30553515 I10 Body mass index 30+ - obesity 238083555 Z68.43 Intermitte nt palpitations 407332556 R00.2 usually at rest, no cp or sob associated reassuranc e provided Microscopic hematuria 19 1496832 R31.21 lmp - 7/12 was last day had last year then resolved will monitor Vitamin D deficiency 347 32573 E55.9 [id number] Fantasma Paredes DO [facility] Internal Medicine [address] [facility], [place] [address] 02/21/2021 15:49:46 02/22/2021 08:10:52 Active or passive immunization 311653498 Z23 up-to-date Adult heal th examination 441998402 Z00.00 BP fine today Screening for cardiovascular system disease 770902617 Z13.6 needs BW done Low back pain 682291191 M54.5 will fu with XR [id number] AGNES LANDAVERDE [facility] [address] [facility], [place] [address] 06/06/2022 11:40:06 06/06/2022 13:04:50 Active or passive immunization 423700810 Z23 up-to-date Adult heal th examination 966713013 Z00.00 BP fine today Family his tory of cancer of colon 022237750 Z80.0 will fu with GI referral for colonoscop y Family his tory of breast cancer 773979943 Z80.3 will set up with genetic counselor referral and screening mammogram Pain of le ft ankle joint 0468905187 9425300 M25.572 will set up with XR ankle Chronic uveitis 37479243 2 H20.13 will send referral for patient [id number] Fantasma Paredes [facility] Internal Medicine [address] [place] [address] 06/10/2023 10:16:05 06/10/2023 11:51:36 Active or passive immunization 980601240 Z23 up-to-date Adult heal th examination 161723773 Z00.00 BP fine today Anxiety 03196189 F41.1 stable Pain of le ft ankle joint 3590596042 5267552 M25.572 will set up with XR ankle Screening mammography 24 614594 Z12.31 will set up with her f/u screening [id number] Fantasma Paredes [facility] [address] [place] [address] 07/21/2024 15:12:52 07/21/2024 16:18:35 Active or passive immunization 155030076 Z23 up-to-date Adult heal th examination 381496836 Z00.00 BP fine today Depression screening 171 635411 Z13.31 SCREENING NEGATIVE Anxiety disorder 6933535 06 F40.01 start for both anxiety and ADHD [id number] Fantasma Paredes [facility] [address] [place] [address] 07/27/2025 15:19:37 07/27/2025 16:23:24 General examination of patient [id number] Z00.00 [id number] BP fine today Acute ankle pain [id number] M25.572 [id number] will set up with XR ankle Screening for malignant neoplasm of cervix [id number] Z12.4 [id number] needs new DATA WAREHOUSE SPECIALIST Health Concerns Section Related Observation LastModified by Organization Detai ls LastModified Time None Recorded Concern Status LastModified by Organization Details LastModified Time None Recorded Advance Directives Directive None Recorded Payers Insurance Date Sequence Insurance Name Policy Number Policy Hernadez Covered Member ID Hernadez Member ID Guarantor Name 04/24/2023 1 [facility] [id number] January B Nicotera [id number] January Nicotera 07/24/2025 1 [facility] [id number] January Nicotera [id number] January Nicotera Notes Date Note Type Note Provider Name and Address Organization Details Recorded Time 1 text/html Annual WellnessReported by PatientSocial/Behaviora l HistoryFor diet and nutrition, patient reportshealthy diet,discussed vitamin and supplement use,discussed portion control,discussed maintaining calcium balance, anddiscussed diet improvement(the patient is eating anjana bar for lunch, leftovers for dinner). For fracture risk, patient reportsno history of fractures,no recent explained fracture,no sudden unexplained fractures, andno previous musculoskeletal injuries. For physical activity, patient reportsexercises on a regular basis,discussed weightbearing activities, anddiscussed exercise habits(walks two miles per day). For additional lifestyle factors, patient reportsno tobacco useanddrinks alcohol (mild-moderate) (two drinks per week)(uses marijuana, eats it).Mental Status:For depression risk, patient reportsnever feels sad, empty, or tearful,no loss of interest in activities,no significant changes in weight,no sleep disturbances or insomnia,no agitation,no loss of energy,no feelings of worthlessness or guilt,no thoughts of suicide,no history of depression, andno history of mood disorders(the patient reports she has more good days than bad days).Functional AbilityFor hearing, patient reportsno loss of hearing. For vision, patient reportsno vision problems(glasses and contacts). AGNES LANDAVERDE [address] [place], [address], [facility] 02/21/2021 16:15:42 2 text/html Annual WellnessReported by PatientSocial/Behaviora l HistoryFor diet and nutrition, patient reportshealthy diet,discussed vitamin and supplement use,discussed portion control,discussed maintaining calcium balance, anddiscussed diet improvement. For fracture risk, patient reportsno history of fractures,no recent explained fracture,no sudden unexplained fractures, andno previous musculoskeletal injuries. For physical activity, patient reportsexercises on a regular basis,recent increase in physical activity, andgood physical condition. For additional lifestyle factors, patient reportsno tobacco use,stopped drinking alcohol, anddrinks alcohol (mild-moderate).Mental Status:For depression risk, patient reportshistory of mood disordersandhistory of depressionbut reportsnever feels sad, empty, or tearful,no loss of interest in activities,no significant changes in weight,no sleep disturbances or insomnia,no agitation,no loss of energy,no feelings of worthlessness or guilt, andno thoughts of suicide.Functional AbilityFor hearing, patient reportsno loss of hearing. For vision, patient reportsno vision problems. AGNES LANDAVERDE [address] [place] [address], [phone], [facility] Internal Medicine 06/06/2022 12:34:05 3 text/html Annual WellnessReported by PatientSocial/Behaviora l HistoryFor diet and nutrition, patient reportshealthy diet,discussed vitamin and supplement use,discussed portion control,discussed maintaining calcium balance, anddiscussed diet improvement. For fracture risk, patient reportsno history of fractures,no recent explained fracture,no sudden unexplained fractures, andno previous musculoskeletal injuries. For physical activity, patient reportsexercises on a regular basis,recent increase in physical activity,good physical condition,discussed weightbearing activities, anddiscussed exercise habits. For additional lifestyle factors, patient reportsno tobacco useanddrinks alcohol (mild-moderate).Mental Status:For depression risk, patient reportsnever feels sad, empty, or tearful,no loss of interest in activities,no significant changes in weight,no sleep disturbances or insomnia,no agitation,no loss of energy,no feelings of worthlessness or guilt,no thoughts of suicide,no history of depression, andno history of mood disorders.Functional AbilityFor hearing, patient reportsno loss of hearing. For vision, patient reportsno vision problems. the patient was recently diagnosed with Parkinson's Diseasethe patient's mother was diagnosed with breast cancer we already knew about the patient is otherwise doing well never got her ankle checkedreordered her ankle XR AGNES LNADAVERDE [address] [facility], [place], [address], [facility] Internal Medicine 06/10/2023 11:20:37 4 text/html Annual WellnessReported by PatientSocial/Behaviora l HistoryFor diet and nutrition, patient reportshealthy diet,discussed vitamin and supplement use,discussed portion control,discussed maintaining calcium balance, anddiscussed diet improvement. For fracture risk, patient reportsno history of fractures,no recent explained fracture,no sudden unexplained fractures, andno previous musculoskeletal injuries. For physical activity, patient reportsexercises on a regular basis,recent increase in physical activity, andgood physical condition. For additional lifestyle factors, patient reportsno tobacco useanddrinks alcohol (mild-moderate).Mental Status:For depression risk, patient reportsnever feels sad, empty, or tearful,no loss of interest in activities,no significant changes in weight,no sleep disturbances or insomnia,no agitation,no loss of energy,no feelings of worthlessness or guilt,no thoughts of suicide,no history of depression, andno history of mood disorders.Functional AbilityFor hearing, patient reportsno loss of hearing. For vision, patient reportsno vision problems.ROS as noted in the HPI seeing a therapist since April AGNES LANDAVERDE [address] [place], [address], [facility] Internal Medicine 07/21/2024 16:10:04 5 text/html Annual WellnessReported by PatientSocial/Behaviora l HistoryFor diet and nutrition, patient reportshealthy diet,discussed vitamin and supplement use,discussed portion control,discussed maintaining calcium balance, anddiscussed diet improvement. For fracture risk, patient reportsno history of fractures,no recent explained fracture,no sudden unexplained fractures, andno previous musculoskeletal injuries. For physical activity, patient reportsexercises on a regular basis,recent increase in physical activity, andgood physical condition. For additional lifestyle factors, patient reportsno tobacco use,no alcohol intake, andstopped drinking alcohol.Mental Status:For depression risk, patient reportsnever feels sad, empty, or tearful,no loss of interest in activities,no significant changes in weight,no sleep disturbances or insomnia,no agitation,no loss of energy,no feelings of worthlessness or guilt,no thoughts of suicide,no history of depression, andno history of mood disorders.Functional AbilityFor hearing, patient reportsno loss of hearing. For vision, patient reportsno vision problems.ROS as noted in the HPI the patient is having more ankle pain in her L ankle into her L calf, laterally the patient does have the meloxicam, which does help a lothad XR done in 2022 which showed developing arthritis the patient now has L knee pain and R knee pain, worse on the L side the patient reports that she is doing well overall AGNES LANDAVERDE [address] [facility], [place], [address], [facility] [place] [facility] 07/27/2025 16:22:43 OBGyn Episode No OBEpisode recorded.
--- OUTSIDE RECORDS SUMMARY | 2025-09-08 13:23 | XMS_ITS | Encounter Summary ---
Author Organization [facility] Address [address] [facility] [address] [place] [address] Phone Care Team Providers Care Fast Food Worker Name Role Phone Fantasma Paredes DO Primary Care Provider [phone] Encounter Details Date Type Department Care Team (Latest Contact Info) Description 08/04/2024 Transcribe Orders Virtual Department [address] [place] [phone] Kierra Smith PA [address] [facility] [place] [address] Pain in right finger(s) (Primary Dx) Social [...] Primary documented in this encounter Care Teams Fast Food Worker Relationship Specialty Start Date End Date Fantasma Paredes DO [email or web address] PCP - General Internal Medicine 02/07/18 documented as of this encounter Additional Source Comments The information contained in this document represents components of the legal health record. It is not the complete legal health record.[facility]
--- OUTSIDE RECORDS SUMMARY | 2025-09-08 13:23 | XMS_ITS | Clinical Summary ---
Author Organization [facility] Address [address] [facility] [address] [place] [phone] Phone Care Team Providers Care Electroplating Technician Name Role Phone Fantasma Paredes Primary Care Provider [phone] Allergies No known active allergies Medications cetirizine [...] topic Medical Devices Not on file [place] [address] [place] [address] [place] [address] [place] [address] [place] [address] [place] [address] [place] [address] [place] [address] Care Teams Electroplating Technician Relationship Specialty Start Date End Date Fantasma Paredes DO [email or web address] PCP - General Internal Medicine 02/07/18 Additional Source Comments The information contained in this document represents components of the legal health record. It is not the complete legal health record.[facility]
--- OUTSIDE RECORDS SUMMARY | 2025-09-08 13:23 | XMS_ITS | Clinical Summary ---
Author Organization [facility] Address [address] [place] [address] Care Team Providers Care Cvir Tech Name Role Phone Unavailable Primary Care Provider [...]
--- OUTSIDE RECORDS SUMMARY | 2025-09-08 13:23 | XMS_ITS | Clinical Summary ---
Author Organization [facility] Address [address] [place] [phone] Care Team Providers Care Assistant Laboratory Director Name Role Phone Unavailable Primary Care Provider [...] 2009 Influenza vaccine 05/21/2025 Covid-19 vaccine series (2024- season) 2025 RSV Immunization (1 - 1-dose [...]
== END 2025-09-07 16:12 | disposition home or self-care (01) ==
LOC: HO.XRAY 16:11
PROVIDERS: PCP Internal Medicine; Visit Provider Physician Assistant
DX: M25.572 Pain in left ankle and joints of left foot (principal)
CPT/HCPCS: 73610

== ENCOUNTER → 2025-09-07 16:30 | Outpatient (BNV) | payer OTHER, SELFPAY | PROVIDERS: PCP Internal Medicine; Visit Provider Radiology Diagnostic Radiology | DX: M25.572 Pain in left ankle and joints of left foot (principal) | CPT/HCPCS: 73610 ==